=== PATIENT | male | born 1950 | race Caucasian/White ===

== ENCOUNTER 2017-04-25 17:05 | Emergency (ER) | payer BC ==
[~2017-04-25] VITALS: Ht 188 cm; Wt 163.3 kg
[~2017-04-25 17:05] MED LIST: AML5 PO; ASP325 PO; ASPI-715 PO; ASPI81TA94 PO; ATOR40TA24 PO; CEP500 PO; CHOL400C10 PO; CIP500 PO; CYCL10TA29 PO; DIA5 PO; DOC100 PO; DRO400PT PO; ENO40I SQ; EZET1TAB61 PO; FUR40 PO; GAB300 PO; GLUC-234 PO; HYDR-4309 PO; KET10 PO; LEVO750T11 PO; LISI5TAB25 PO; LOR5 PO; LOR5/325 PO; LOT15T TOP; MET500 PO; METF-409 PO; METO25TA23; METO25TA91 PO; MULTAG PO; NAP500; NIT4 SL; OXYC1TAB54 PO; PANT20TA27 PO; PANT40TA13 PO; PER PO; PHEN120S18 PO; PHENA200 PO; PIOG45TA18 PO; PIOG45TA3 PO; QUIN20TA3 PO; QUIN5TAB19 PO; SIMV-44 PO; SPI25 PO; SUC1 FT; TAM4 PO; TAMS0.4C76 PO; WAR5 PO; WARF5VIA3 IV
--- NOTE | 2017-04-25 17:42 | ER Report ---
History and Physical Hx. of Stated Complaint: Right sided jaw pain, states he was eating and felt it pop, sudden onset of pain that radiated to his right ear. (JEFFERY FORD MD) Time Seen By MD: 17:00 (ZAINA PEREZ MD) PAPITO/ANNMARIE CHIEF COMPLAINT: Jaw pain HISTORY OF PRESENT ILLNESS: 66-year-old male complains of discomfort in the right jaw or chewing on a greek torres on the left side feels like his dentures are coming back tonight together normally right jaw seems to be popping when he opens and closes mouth. No other concerns or complaints today REVIEW OF SYSTEMS: Respiratory: No cough, no dyspnea. Cardiovascular: No chest pain, no palpitations. Gastrointestinal: No vomiting, no abdominal pain. Musculoskeletal: No back pain. (JEFFERY FORD MD) HPI/ANNMARIE Has a long standing history og TMJ laxity. Was eating dinner tonight when he experienced a sudden pain in his right TMJ. ABle to move his jaw freely, but with pain. Also with swelling in the same area. Was able to finish his dinner Remainder of the 14 system rev: Yes (ZAINA PEREZ MD) Allergies: Coded Allergies: Ertapenem Sodium (Verified Allergy, Severe, MASSIVE CHEST PAIN, 04/25/17) Sulfa (Sulfonamide Antibiotics) (Verified Allergy, Severe, RASH, SWELLING , DISORIENTED, 04/25/17) levofloxacin (Verified Allergy, Severe, MASSIVE CHEST PAIN, 04/25/17) penicillin G (Verified Allergy, Severe, RASH, DISORIENTED AND SWELLING, 04/25/17) Home Meds Reported Medications Metoprolol Succinate (METOPROLOL SUCCINATE) 25 Mg Tab.er.24h, QDAY 02/11/17 Pioglitazone Hcl (PIOGLITAZONE HCL) 45 Mg Tablet, 45 MG PO QDAY 02/11/17 Lisinopril (LISINOPRIL) 5 Mg Tablet, 5 MG PO QDAY, TAB 02/11/17 Atorvastatin Calcium (LIPITOR) 40 Mg Tablet, 1 TAB PO QDAY, TAB 01/27/17 Aspirin (ASPIRIN) 81 Mg Tab.chew, 81 MG PO QDAY, TAB.CHEW TAKE 1 TABLET BY MOUTH EVERY DAY 04/23/14 Ergocalciferol (Vitamin D) 400 Unit Capsule, 400 UNIT PO DAILY, 0 Refills 09/18/09 Metformin Hcl (Glucophage) 500 Mg Tab, 1000 MG PO BIDBS, 0 Refills 09/18/09 Gabapentin (Neurontin) 300 Mg Cap, 300 MG PO DAILY, 0 Refills DAILY 09/18/09 Discontinued Reported Medications Pantoprazole Sodium (PANTOPRAZOLE SODIUM) 20 Mg Tablet.dr, 20 MG PO QDAY, TAB.SR 02/11/17 Simvastatin (Zocor) 40 Mg Tablet, 40 MG PO QHS, 0 Refills 09/18/09 Discontinued Scripts Diazepam (VALIUM) 5 Mg Tablet, 5 MG PO 2-3XD, #15 TAB Prov:JAYDEN BUTTERFIELD 02/11/17 Hydrocodone Bit/Acetaminophen (NORCO 5-325 TABLET) 1 Each Tablet, 1 EACH PO Q4- 6H Y for PAIN, #20 TAB Prov:JAYDEN BUTTERFIELD 02/11/17 Reviewed Nurses Notes: Yes Old Medical Records Reviewed: Yes (ZAINA PEREZ MD) Hx Smoking: No Smoking Status: Former Smoker Hx Substance Use Disorder: No Hx Alcohol Use: No (JEFFERY FORD MD) Hx Smoking: No Exposure to Second Hand Smoke?: No Hx Substance Use Disorder: No Hx Alcohol Use: No (ZAINA PEREZ MD) Constitutional Vital Sign - Last 24 Hours 04/25/17 04/25/17 04/25/17 04/25/17 17:13 17:20 17:21 17:30 Temp 98.6 Pulse 69 66 Resp 20 B/P (MAP) 157/67 (97) 157/67 135/52 (79) Pulse Ox 96 96 O2 Delivery Room Air 04/25/17 04/25/17 04/25/17 04/25/17 17:35 18:00 18:05 18:20 Pulse ??? 73 64 B/P (MAP) 144/63 (90) Pulse Ox 96 95 90 04/25/17 04/25/17 04/25/17 04/25/17 18:30 18:35 18:50 19:00 Pulse 65 72 B/P (MAP) 130/63 (85) 132/61 (84) Pulse Ox 92 96 04/25/17 04/25/17 04/25/17 04/25/17 19:05 19:20 19:30 19:54 Pulse 75 73 85 Resp 16 B/P (MAP) 131/65 (87) 131/82 (98) Pulse Ox 94 92 92 O2 Delivery Room Air (ZAINA PEREZ MD) Physical Exam General Appearance: The patient is alert, has no immediate need for airway protection and no current signs of toxicity. Does not appear ill Eyes: Pupils equal and round no injection. Jaw: Palpable popping right jaw with maximal opening and closing demonstrated. No obvious malalignment of the teeth. Respiratory: Chest is non tender, lungs are clear to auscultation. Cardiac: regular rate and rhythm no murmurs gallops or rubs Gastrointestinal: Abdomen is soft and non tender, no masses, bowel sounds normal. Musculoskeletal: Neck: Neck is supple and non tender. Extremities have full range of motion and are non tender. Skin: No rashes or lesions. No edema DIFFERENTIAL DIAGNOSIS/MDM: After history and physical exam differential diagnosis was considered for TMJ syndrome to a dislocation fracture less likely trigeminal neuralgia. Plan to get plain film x-rays to further characterize the nature of the injury. (JEFFERY FORD MD) Medical Decision Making ED Course/Re-evaluation ED Course Care signed to Dr. Perez at 6 PM change of shift. Presentation and preliminary results available were discussed. (JEFFERY FORD MD) ED Course No evidence of dislocation. Patient has a long-standing history of laxity at both TMJs. No subluxation. X-rays. The patient is not able to eat and drink and feels back to his baseline. States if he continues to have problems he will follow-up with his local dentist. Decision to Disposition Date: Apr 25, 2017 Decision to Disposition Time: 19:51 (ZAINA PEREZ MD) Depart Departure Latest Vital Signs Vital Signs Date Time Temp Pulse Resp B/P (MAP) Pulse Ox O2 Delivery O2 Flow Rate FiO2 04/25/17 19:54 85 16 131/82 (98) 92 Room Air 04/25/17 17:21 98.6 (ZAINA PEREZ MD) Impression: Primary Impression: Temporal mandibular joint disorder Condition: Improved Referrals: AARON MANZANO (PCP) Patient Instructions: Temporomandibular Disorder (ED) JEFFERY FORD MD Apr 25, 2017 17:42 ZAINA PEREZ MD Apr 25, 2017 20:00
--- NOTE | 2017-04-25 19:15 | RADIOLOGY IMAGING REPORT ---
FACILITY: [facility] PATIENT NAME: Holger Suh : 1950 MR: [id number] V: [id number] EXAM DATE: ORDERING PHYSICIAN: JEFFERY FORD TECHNOLOGIST: Location: [facility] - [place] Patient: Holger Suh : 1950 Visit/Account:[id number] Date of Sevice: 04/25/2017 EXAMINATION: Mandible radiographs 5 views HISTORY: Jaw dislocation. COMPARISON: None. FINDINGS: 5 views of the mandible were obtained. Mandible: No evidence of acute fracture. TMJ's: No dislocation. Bones: Negative. Soft tissues: Negative. IMPRESSION: No evidence of acute fracture or dislocation of the mandible. Report Dictated By: Familia Bauer MD at 04/25/2017 7:07 PM Report E-Signed By: Familia Bauer MD at 04/25/2017 7:11 PM WSN:[id number]
[2017-04-25 19:54] VITALS: BP 131/82
== END 2017-04-25 20:04 | disposition home or self-care (01) ==
LOC: ER 17:26
DX: M26.601 Right temporomandibular joint disorder, unspecified (principal); M26.69 Other specified disorders of temporomandibular joint; Z87.891 Personal history of nicotine dependence
CPT/HCPCS: 70100; 99281

== ENCOUNTER 2018-06-20 03:34 | Day surgery (SDC) | payer BC ==
[~2018-06-20] VITALS: Ht 188 cm; Wt 166.9 kg
[~2018-06-20 03:34] MED LIST changes: -HYDR-4309 PO; +HYDR-653 PO; +LOSA25TA57 PO; +METO50TA19 PO; -PIOG45TA3 PO; +PIOG45TA65 PO
[2018-06-20] MEDS: LIDOCAINE/SOD BICARB 8.4% SYR ID ONE ×2 (13:30→14:04)
[2018-06-20 13:56] VITALS: BP 193/73
[2018-06-20] MEDS ORDERED: OPHTHALMIC PROCEDURE 2 OU PRN (14:30)
[2018-06-20] MEDS ORDERED: NORMOSOL R SOLN(*) 1000 ML BAG 1,000 ML IV PRN (14:30)
[2018-06-20] MEDS ORDERED: OPHTHALMIC PROCEDURE 1 OS PRN (14:30)
[2018-06-20] MEDS ORDERED: OPHTHALMIC PROCEDURE 2 OS PRN (14:30)
[2018-06-20 15:30] VITALS: BP 133/59
--- NOTE | 2018-06-20 17:43 | FOSTER LEFT EYE CATARACT ---
EVENT DATE: June 20, 2018 SURGEON: Renzo Garcia MD ANESTHESIOLOGIST: Marc Koroma MD ANESTHESIA: MAC PREOPERATIVE DIAGNOSIS Cataract, left eye. POSTOPERATIVE DIAGNOSIS Cataract, left eye. PROCEDURE Phacoemulsification of cataractous lens with implantation of an intraocular lens, left eye. DESCRIPTION OF PROCEDURE The risks, benefits, and alternatives were carefully discussed with the patient, and preoperative consent was obtained. The patient was brought to the operating room after receiving topical anesthetic. The patient was prepped and draped using sterile technique in the usual manner. A stab incision was made, and the chamber was inflated with preservative-free lidocaine. DuoVisc was injected to inflate the chamber. A 2.2 mm blade was used to enter the anterior chamber. Utrata forceps were used to tear a circular capsulorrhexis. BSS was used to hydrodissect the nucleus. Phaco tip was introduced, and the nucleus was chopped into four quadrants. Each quadrant was removed. The I/A tip was used to remove the cortex. The bag was inflated with ProVisc. The intraocular lens was injected into the capsular bag. The I/A tip was used to remove the ProVisc. The wound was found to be watertight. Vigamox, Nevanac, and Maxitrol ointment were placed in the patient's eye. The patient's eye was patched, and the patient was taken to the recovery room in stable condition. The patient was examined in the recovery room and found to be stable prior to release from the hospital. TATYANA
== END 2018-06-20 15:56 | disposition home or self-care (01) ==
LOC: OR 03:34
PROVIDERS: ATTEND Ophthalmology
DX: H25.12 Age-related nuclear cataract, left eye (principal)
CPT/HCPCS: 36416; 66984; 82948; V2632

== ENCOUNTER 2018-08-25 12:31 | Emergency (ER) | payer BC ==
--- NOTE | 2018-08-26 08:07 | RADIOLOGY IMAGING REPORT ---
FACILITY: [facility] - [place] PATIENT NAME: Holger Suh : 1950 MR: [id number] V: [id number] EXAM DATE: ORDERING PHYSICIAN: GAYLE LOGAN TECHNOLOGIST: Location: [facility] - [place] Patient: Holger Suh : 1950 Visit/Account:[id number] Date of Sevice: 08/25/2018 SHOULDER MIN 2 VIEWS LEFT, HUMERUS LEFT Indication: Pain after fall Comparison: Unavailable Findings: There is no acute fracture-dislocation of the left glenohumeral joint and humerus. Limited views of the left upper lung zone are unremarkable. Mild degenerative changes seen involving the acromioclavicular joint. IMPRESSION: 1. No acute osseous abnormality left shoulder and humerus. Report Dictated By: Felix Cruz at 08/25/2018 3:21 PM Report E-Signed By: Felix Cruz at 08/25/2018 3:22 PM WSN:[email or web address]
--- NOTE | 2018-08-26 08:08 | RADIOLOGY IMAGING REPORT ---
FACILITY: [facility] - [place] PATIENT NAME: Holger Suh : 1950 MR: [id number] V: [id number] EXAM DATE: ORDERING PHYSICIAN: GAYLE LOGAN TECHNOLOGIST: Location: [facility] - [place], [place] Patient: Holger Suh : 1950 Visit/Account:[id number] Date of Sevice: 08/25/2018 SHOULDER MIN 2 VIEWS LEFT, HUMERUS LEFT Indication: Pain after fall Comparison: Unavailable Findings: There is no acute fracture-dislocation of the left glenohumeral joint and humerus. Limited views of the left upper lung zone are unremarkable. Mild degenerative changes seen involving the acromioclavicular joint. IMPRESSION: 1. No acute osseous abnormality left shoulder and humerus. Report Dictated By: Felix Cruz at 08/25/2018 3:21 PM Report E-Signed By: Felix Cruz at 08/25/2018 3:22 PM WSN:[email or web address]
--- NOTE | 2018-09-18 07:48 | ER Report ---
History and Physical Time Seen By MD: 07:46 Hx. of Stated Complaint: FALL OFF LADDER - SEE PAPER CHARTING. HPI/ROS CHIEF COMPLAINT: Shoulder pain HISTORY OF PRESENT ILLNESS: 68-year-old male who fell off several rungs of the ladder under his left shoulder complaining of left shoulder left upper arm pain no head or neck trauma loss of consciousness additional complaints REVIEW OF SYSTEMS: Respiratory: No cough, no dyspnea. Cardiovascular: No chest pain, no palpitations. Gastrointestinal: No vomiting, no abdominal pain. Musculoskeletal: Left shoulder pain Remainder of the 14 system rev: Yes Allergies: Coded Allergies: Ertapenem Sodium (Verified Allergy, Severe, MASSIVE CHEST PAIN, 04/25/17) Sulfa (Sulfonamide Antibiotics) (Verified Allergy, Severe, RASH, SWELLING, DISORIENTED, 04/25/17) levofloxacin (Verified Allergy, Severe, MASSIVE CHEST PAIN, 04/25/17) penicillin G (Verified Allergy, Severe, RASH, DISORIENTED AND SWELLING, 04/25/17) Home Meds Reported Medications Losartan Potassium (LOSARTAN POTASSIUM) 25 Mg Tablet, 25 MG PO QDAY 06/17/18 Metoprolol Succinate (METOPROLOL SUCCINATE) 50 Mg Tab.er.24h, 1 TAB PO BID, TAB 06/17/18 Pioglitazone Hcl (PIOGLITAZONE HCL) 45 Mg Tablet, 45 MG PO QDAY 02/11/17 Atorvastatin Calcium (LIPITOR) 40 Mg Tablet, 1 TAB PO QDAY, TAB 01/27/17 Aspirin (ASPIRIN) 81 Mg Tab.chew, 81 MG PO QDAY, TAB.CHEW TAKE 1 TABLET BY MOUTH EVERY DAY 04/23/14 Ergocalciferol (Vitamin D) 400 Unit Capsule, 400 UNIT PO DAILY, 0 Refills 09/18/09 Metformin Hcl (Glucophage) 500 Mg Tab, 1000 MG PO BIDBS, 0 Refills 09/18/09 Gabapentin (Neurontin) 300 Mg Cap, 300 MG PO DAILY, 0 Refills DAILY 09/18/09 Reviewed Nurses Notes: Yes Old Medical Records Reviewed: Yes Hx Smoking: Yes (quit 1983) Smoking Status: Former Smoker Exposure to Second Hand Smoke?: No Hx Substance Use Disorder: No Hx Alcohol Use: No Physical Exam General Appearance: The patient is alert, has no immediate need for airway protection and no current signs of toxicity. [ ] Eyes: Pupils equal and round no injection. Respiratory: Chest is non tender, lungs are clear to auscultation. Cardiac: regular rate and rhythm [ ] Gastrointestinal: Abdomen is soft and non tender, no masses, bowel sounds normal. Musculoskeletal: Left shoulder examination of some pain to palpation of the left shoulder area and the proximal humerus neurovascular intact full range of motion noted Neck is supple and non tender. As stated above Skin: No rashes or lesions. [ ] DIFFERENTIAL DIAGNOSIS: After history and physical exam differential diagnosis was considered for fracture dislocation subluxation humeral fracture Medical Decision Making ED Course/Re-evaluation ED Course ED course 7 mL mechanical fall off the ladder onto his shoulder trauma no additional imaging required other than x-rays of the shoulder and humeral areas are all negative diagnosis contusion Decision to Disposition Date: September 18, 2018 Decision to Disposition Time: 07:48 Depart Departure Impression: Primary Impression: Shoulder contusion Condition: Improved Disposition: HOME OR SELF-CARE Referrals: AARON MANZANO (PCP) Departure Forms: Medications Reconciliation, Patient Portal Information, ER Transition Record GAYLE LOGAN MD September 18, 2018 07:48
== END 2018-08-25 13:05 | disposition home or self-care (01) ==
LOC: ER 12:31
DX: S40.012A Contusion of left shoulder, initial encounter (principal)
CPT/HCPCS: 99284

== ENCOUNTER 2018-08-29 01:59 | Day surgery (SDC) | payer BC ==
[~2018-08-29] VITALS: Ht 188 cm; Wt 171.9 kg
[2018-08-29 11:29] VITALS: BP 156/81
[2018-08-29] MEDS ORDERED: OPHTHALMIC PROCEDURE 1 OD PRN (11:30)
[2018-08-29] MEDS ORDERED: OPHTHALMIC PROCEDURE 2 OD PRN (11:30)
[2018-08-29] MEDS ORDERED: NORMOSOL R SOLN(*) 1000 ML BAG 1,000 ML IV PRN (11:30)
[2018-08-29] MEDS ORDERED: OPHTHALMIC PROCEDURE 2 OU PRN (11:30)
[2018-08-29] MEDS ORDERED: LIDOCAINE/SOD BICARB 8.4% SYR ID ONE (11:30)
[2018-08-29] MEDS ORDERED: PROPOFOL EMUL(*) 10MG/ML 20 ML 20 ML ONE (12:14)
[2018-08-29] MEDS ORDERED: LIDOCAINE MPF 1% 5 ML VIAL ONE (12:14)
[2018-08-29 12:52] VITALS: BP 130/64
[2018-08-29] MEDS ORDERED: TOBRAMYCIN 0.3% OP SOLN 5 ML OD ONE (13:00)
--- NOTE | 2018-08-29 19:37 | FOSTER RIGHT EYE CATARACT ---
EVENT DATE: August 29, 2018 SURGEON: Renzo Garcia MD ANESTHESIOLOGIST: LIMA PATEL MD ANESTHESIA: MAC PREOPERATIVE DIAGNOSIS Cataract, right eye. POSTOPERATIVE DIAGNOSIS Cataract, right eye. PROCEDURE Phacoemulsification of cataractous lens with implantation of an intraocular lens, right eye. DESCRIPTION OF PROCEDURE The risks, benefits, and alternatives were carefully discussed with the patient, and preoperative consent was obtained. The patient was brought to the operating room after receiving topical anesthetic. The patient was prepped and draped using sterile technique in the usual manner. A stab incision was made, and the chamber was inflated with preservative-free lidocaine. DuoVisc was injected to inflate the chamber. A 2.2 mm blade was used to enter the anterior chamber. Utrata forceps were used to tear a circular capsulorrhexis. BSS was used to hydrodissect the nucleus. Phaco tip was introduced, and the nucleus was chopped into four quadrants. Each quadrant was removed. The I/A tip was used to remove the cortex. The bag was inflated with ProVisc. The intraocular lens was injected into the capsular bag. The I/A tip was used to remove the ProVisc. The wound was found to be watertight. Vigamox, Nevanac, and Maxitrol ointment were placed in the patient's eye. The patient's eye was patched, and the patient was taken to the recovery room in stable condition. The patient was examined in the recovery room and found to be stable prior to release from the hospital. FR[facility]CH HOSPITALFernanda
== END 2018-08-29 13:28 | disposition home or self-care (01) ==
LOC: OR 01:59
PROVIDERS: ATTEND Ophthalmology
DX: H25.11 Age-related nuclear cataract, right eye (principal); E11.9 Type 2 diabetes mellitus without complications
CPT/HCPCS: 36416; 66984; 82948; J2001; J2704; V2632

== ENCOUNTER → 2018-10-06 | Outpatient (CLI) | payer BC ==
[2018-10-06 14:34] LABS: LDL CHOLESTEROL 48 mg/dl
== END ==
LOC: LAB 13:16
PROVIDERS: ATTEND Internal Medicine Cardiovascular Disease
DX: E78.00 Pure hypercholesterolemia, unspecified (principal); I25.10 Atherosclerotic heart disease of native coronary artery without angina pectoris; Z95.2 Presence of prosthetic heart valve
CPT/HCPCS: 36415; 82310; 82374; 82435; 82465; 82565; 82947; 83718; 84132; 84295; 84478; 84520

== ENCOUNTER 2018-11-11 17:14 | Emergency (ER) | payer BC ==
[2018-11-11] MEDS ORDERED: TAMS0.4C25 PO (17:24)
[2018-11-11] MEDS ORDERED: CEPH500C24 PO (17:24)
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
[2018-11-11] MEDS ORDERED: ASPIRIN 81 MG CHEW PO ONE (18:00)
[2018-11-11] MEDS ORDERED: ASPIRIN 81 MG CHEW ONE (18:02)
[2018-11-11 18:05] LABS: PLATELET COUNT, AUTOMATED 270 K/uL (150-450)
--- NOTE | 2018-11-11 19:02 | EKG ---
FACILITY: [facility] [place] PATIENT NAME: KHADAR HOLGUIN : [id number] MR: [id number] V: [id number] EXAM DATE: ORDERING PHYSICIAN: LORNA DO TECHNOLOGIST: LISA Test Reason : REPEAT EKG Blood Pressure : / mmHG Vent. Rate : 065 BPM Atrial Rate : 065 BPM P-R Int : 206 ms QRS Dur : 178 ms QT Int : 446 ms P-R-T Axes : 039 -60 023 degrees QTc Int : 463 ms Sinus rhythm with frequent premature ventricular complexes occuring in trigeminy Right bundle branch block Left anterior fascicular block Bifascicular block Left axis deviation Abnormal ECG When compared with ECG of 11-NOV-2018 17:22, premature ventricular complexes are now present Confirmed by Ford Esparza ([id number]) on 11/11/2018 8:48:42 PM Referred By: Confirmed By:Ford Gooden
--- NOTE | 2018-11-11 19:03 | EKG ---
FACILITY: [facility] [place] PATIENT NAME: KHADAR HOLGUIN : [id number] MR: [id number] V: [id number] EXAM DATE: ORDERING PHYSICIAN: LORNA DO TECHNOLOGIST: Test Reason : Blood Pressure : / mmHG Vent. Rate : 064 BPM Atrial Rate : 064 BPM P-R Int : 214 ms QRS Dur : 180 ms QT Int : 440 ms P-R-T Axes : 038 -62 016 degrees QTc Int : 453 ms Sinus rhythm with 1st degree AV block Right bundle branch block Left anterior fascicular block Bifascicular block Left axis deviation Abnormal ECG When compared with ECG of 11-FEB-2017 16:38, MD interval has increased (RBBB and left anterior fascicular block) is now present Confirmed by Ford Esparza ([id number]) on 11/11/2018 8:47:39 PM Referred By: Confirmed By:Ford Gooden
--- NOTE | 2018-11-11 19:06 | RADIOLOGY IMAGING REPORT ---
FACILITY: [facility] PATIENT NAME: Holger Suh : 1950 MR: [id number] V: [id number] EXAM DATE: ORDERING PHYSICIAN: LORNA DO TECHNOLOGIST: Location: [facility] Patient: Holger Suh : 1950 Visit/Account:[id number] Date of Sevice: 11/11/2018 2 VIEWS CHEST INDICATION: Chest pain. COMPARISON: 01/27/2017. FINDINGS: Cardiomediastinal silhouette and pulmonary vessels within normal limits. Sternotomy changes. Valve re placement changes. There is no focal infiltrate or lobar consolidation. There is no pneumothorax or pleural effusion. No nodule. Upper abdomen is unremarkable. No acute bony abnormality. IMPRESSION: 1. No acute cardiopulmonary process. Report Dictated By: Declan Mcdonald at 11/11/2018 6:57 PM Report E-Signed By: Declan Mcdonald at 11/11/2018 6:59 PM WSN:[id number]
[2018-11-11 21:00] VITALS: BP 129/70
== END 2018-11-11 21:16 | disposition home or self-care (01) ==
LOC: ER 17:17
DX: R55 Syncope and collapse (principal); I45.10 Unspecified right bundle-branch block; I44.0 Atrioventricular block, first degree; I48.91 Unspecified atrial fibrillation; Z95.5 Presence of coronary angioplasty implant and graft; I10 Essential (primary) hypertension; I25.2 Old myocardial infarction; E78.00 Pure hypercholesterolemia, unspecified; G47.33 Obstructive sleep apnea (adult) (pediatric); K21.9 Gastro-esophageal reflux disease without esophagitis; Z79.82 Long term (current) use of aspirin; Z79.899 Other long term (current) drug therapy; Z87.891 Personal history of nicotine dependence; Z99.89 Dependence on other enabling machines and devices; Z87.442 Personal history of urinary calculi
CPT/HCPCS: 71046; 82040; 82247; 82310; 82374; 82435; 82565; 82947; 83880; 84075; 84132; 84155; 84295; 84450; 84460; 84484; 84520; 85025; 93005; 99284

== ENCOUNTER → 2018-11-28 | Outpatient (CLI) | payer BC ==
[~2018-11-28] MED LIST changes: +CEPH500C24 PO; +TAMS0.4C25 PO
== END ==
LOC: LAB 12:57
PROVIDERS: ATTEND Internal Medicine
DX: R00.2 Palpitations (principal)
CPT/HCPCS: 36415; 82040; 82247; 82310; 82374; 82435; 82565; 82947; 84075; 84132; 84155; 84295; 84443; 84450; 84460; 84520

== ENCOUNTER → 2018-12-01 | Outpatient (CLI) | payer BC | LOC: RESP 12:59 | PROVIDERS: ATTEND Internal Medicine | DX: J98.4 Other disorders of lung (principal) | CPT/HCPCS: 94060; 94726; 94729 ==

== ENCOUNTER → 2018-12-03 | Outpatient (CLI) | payer BC | LOC: LAB 11:15 | PROVIDERS: ATTEND Internal Medicine | DX: E03.9 Hypothyroidism, unspecified (principal) | CPT/HCPCS: 36415; 84439 ==